=== PATIENT | female | born 1985 | race Caucasian/White ===

== ENCOUNTER 2020-04-27 14:22 | Inpatient (IN) ==
[2020-04-27] MEDS ORDERED: MULTI-VITAMIN INFUSION 10 ML, THIAMINE HCL 100 MG, FOLIC ACID 1 MG in SODIUM CHLORIDE 0... IV ONE (14:35)
[2020-04-27] MEDS ORDERED: LORazepam 1 MG TAB PO PRN ×2 (14:35)
--- NOTE | 2020-04-27 14:51 | Emergency Department Note ---
Impression & Plan Overdose, Depression, Alcohol abuse ED Provider Note NAME: DENIA WAGNER AGE: 34 SEX: F : 1985 ARRIVES VIA: Ambulance INFORMANT: Patient, ED PROVIDER(S): Candelario Santana MD Chief Complaint: Suicide attempt and overdose HPI: Patient reportedly did take 600 mg Seroquel 1 hour prior to arrival. This was after the patient had been drinking a drink a half fifth of vodka and 8-9 beers. The patient has been doing this since proximate 3 AM. The patient did recently moved from the [facility] approximately 20 days ago. Patient does not present with any COVID symptoms no fever no cough. The patient does have a known history of depression. The patient states that she did take the medication with an attempt to harm her self. Patient does not have access to guns or weapons. The patient does have a relative that works at [facility]. ROS: See HPI for pertinent positives and negatives. A total of 10 systems were reviewed and otherwise negative. Past medical history: See below Surgical history: See below Social history: See below Physical Exam: GENERAL: NAD, non-toxic. Wearing a mask. EYE EXAM: Normal conjunctiva. PERRL, no anisocoria and EOM's grossly intact w/o pain. NECK: Supple, no nuchal rigidity, no adenopathy, non-tender. No signs of meningismus. LUNGS: Clear to auscultation. Normal chest wall mechanics. HEART: NSR, no MRG. ABDOMEN: Abdomen soft, non-tender, normo-active bowel sounds, no masses, no rebound or guarding. BACK: No CVA TTP. SKIN: No rashes and no bruising. UPPER EXTREMITIES: Upper extremities are grossly normal. LOWER EXTREMITIES: Grossly normal, no edema. NEURO EXAM: Awake alert and follows commands, slurred speech, moves all 4 extremities without any problems. Psych: Depressed mood, active SI, negative HI or AVH. Differential diagnoses: Mood disorder, infection, hypoglycemia, electrolyte abnormalities, cardiac sources, intracerebral event, toxicologic, trauma, neurologic, as well as other pathologies. Course: Patient was seen and evaluated the bedside. Full history physical exam was performed. EKG: Indication: Overdose Normal sinus rhythm, rate of 79, normal intervals, normal axis, T wave flattening in V2 and 3 not in contiguous leads no obvious ST changes. No prior EKGs. Imaging Studies: Radiology results as stated below per my review in the radiologist's interpretation: Cardiac monitoring: An order was placed for continuous cardiac monitoring. The monitor shows a rate of 90 with sinus rhythm. MDM: Patient does present with acute overdose. I did speak with poison control which gave recommendations that if QTC is prolonged to give mag. Patient will be a 6- hour observation at this time. Patient does have a normal white count. Trace anemia patient has normal kidney function. Patient's urinalysis shows possibility of infection has numerous epithelial cells. Urine drug screen is positive for barbiturates MDMA, benzos and cocaine and marijuana. Patient was ordered additional medications to help avoid any sort of withdrawal along with a banana bag. Patient has a negative alcohol. The patient's pending reassessment is at 9 PM. The patient was signed out to the evening physician Dr. Bentley pending reassessment disposition. Past Med/Surg History Social History Preferred Language: Cameroonian Feels Safe at Home: Yes Smoking Status: Current every day smoker Allergies Allergies Allergy/AdvReac Type Severity Reaction Status Date / Time doxycycline Allergy Severe Throat Verified 04/20/20 15:32 swelling, hives and vomiting Home Meds Home Medications Medication Instructions Recorded Confirmed diazepam [Valium] 2 mg PO BID PRN 04/27/20 04/27/20 duloxetine [Cymbalta] 60 mg PO DAILY 04/27/20 04/27/20 gabapentin 300 mg PO TID 04/27/20 04/27/20 quetiapine [Seroquel] 25 mg PO HS 04/27/20 04/27/20 Results & Data (ED) Vital Signs Vital Signs - 24 hr 04/27/20 14:23 04/27/20 16:13 04/27/20 16:56 Temperature 37.1 C Temperature Source Oral Pulse Rate 90 Pulse Rate [Finger] 74 70 Pulse Rhythm Regular Pulse Strength Normal Respiratory Rate 18 17 17 Respiratory Effort / Characteristics Non-Labored Spontaneous Respiratory Depth Normal Respiratory Pattern Regular Blood Pressure 118/70 Blood Pressure [Left Arm] 99/59 L Blood Pressure Mean 86 Blood Pressure Mean [Left Arm] 72 Blood Pressure Position Lying Pulse Oximetry 97 99 98 Oxygen Delivery Method Room Air Room Air Room Air Sepsis Recent Fever Within 48 Hours No Sepsis New/Unexplained Change in Mental Status No Sepsis Action Taken by Nursing No Action Required Home Medications Current Medication List: was personally reviewed by me Laboratory Data Attestation: I reviewed the patient's lab results. Result diagrams: 04/27/20 14:38 04/27/20 14:38 Lab Results 04/27/20 04/27/20 04/27/20 Range/Units 14:38 14:38 14:38 WBC 6.00 (4.8-10.8) K/uL RBC 3.83 L (4.2-5.4) M/uL Hgb 11.9 L (12.0-16.0) g/dL Hct 34.3 L (37-47) % MCV 89.6 (80-100) fL MCH 31.1 (25-34) pg MCHC 34.7 (32-36) g/dL RDW Std Deviation 43.3 (36.4-46.3) fL RDW Coeff of [place] 13.3 (11.5-14.5) % Plt Count 246 (130-400) K/uL MPV 9.4 (7.4-10.4) fL Immature Gran % (Auto) 0.2 % Neut % (Auto) 53.0 % Lymph % (Auto) 28.3 % [place] % (Auto) 10.3 % Eos % (Auto) 7.7 % Baso % (Auto) 0.5 % Neut # (Auto) 3.18 (1.4-6.5) K/uL Lymph # (Auto) 1.70 (1.2-3.4) K/uL [place] # (Auto) 0.62 H (0.11-0.59) K/uL Eos # (Auto) 0.46 (0-0.5) K/uL Baso # (Auto) 0.03 (0-0.2) K/uL Immature Gran # (Auto) 0.01 (0.00-0.02) K/uL Sodium 141 (136-145) mmol/L Potassium 4.0 (3.5-5.1) mmol/L Chloride 111 H (98-107) mmol/L Carbon Dioxide 24 (21-32) mmol/L Anion Gap 5.0 (3-11) BUN 14 (7-18) mg/dl Creatinine 0.82 (0.6-1.2) mg/dl Est Cr Clr Drug Dosing 74.3 ml/min Est GFR ( Amer) 109.7 Est GFR (Non-Af Amer) 94.7 BUN/Creatinine Ratio 16.6 (10-20) Glucose 67 L (70-99) mg/dl Calcium 8.7 (8.5-10.1) mg/dl Total Bilirubin 0.7 (0.2-1) mg/dl AST 15 (15-37) U/L ALT 26 (12-78) U/L Alkaline Phosphatase 63 (45-117) U/L Total Protein 6.8 (6.4-8.2) gm/dl Albumin 3.6 (3.4-5.0) gm/dl Globulin 3.2 (2.5-4.0) gm/dl Albumin/Globulin Ratio 1.1 (0.9-2) TSH 1.100 (0.300-4.500) uIu/ml HCG, Qual (Negative) Urine Color Urine Appearance (Clear) Urine pH (4.5-7.5) Ur Specific [place] (1.000-1.030) Urine Protein (Negative) Urine Glucose (UA) (Negative) Urine Ketones (Negative) Urine Blood (Negative) Urine Nitrite (Negative) Urine Bilirubin (Negative) Urine Urobilinogen (Negative) Ur Leukocyte Esterase (Negative) Urine WBC (Auto) (0-5) /hpf Urine RBC (Auto) (0-4) /hpf U Hyaline Cast (Auto) (0-5) /lpf U Epithel Cells (Auto) (0-5) /lpf Urine Bacteria (Auto) (Negative) Salicylates 2.5 L (2.8-20) mg/dl Urine Opiates Screen (Neg) Ur Methadone, Qual (Neg) Acetaminophen < 2 L (10-30) ug/ml Urine Barbiturates (Neg) Ur Phencyclidine (PCP) (Neg) U Amphetamin/Meth Scrn (Neg) MDMA (Ecstasy) Screen (Neg) U Benzodiazepines Scrn (Neg) Ur Cocaine Metabolite (Neg) U Marijuana (THC) Screen (Neg) Ethyl Alcohol mg/dL (0-3) mg/dl 04/27/20 04/27/20 04/27/20 Range/Units 14:38 14:38 14:40 WBC (4.8-10.8) K/uL RBC (4.2-5.4) M/uL Hgb (12.0-16.0) g/dL Hct (37-47) % MCV (80-100) fL MCH (25-34) pg MCHC (32-36) g/dL RDW Std Deviation (36.4-46.3) fL RDW Coeff of [place] (11.5-14.5) % Plt Count (130-400) K/uL MPV (7.4-10.4) fL Immature Gran % (Auto) % Neut % (Auto) % Lymph % (Auto) % [place] % (Auto) % Eos % (Auto) % Baso % (Auto) % Neut # (Auto) (1.4-6.5) K/uL Lymph # (Auto) (1.2-3.4) K/uL [place] # (Auto) (0.11-0.59) K/uL Eos # (Auto) (0-0.5) K/uL Baso # (Auto) (0-0.2) K/uL Immature Gran # (Auto) (0.00-0.02) K/uL Sodium (136-145) mmol/L Potassium (3.5-5.1) mmol/L Chloride (98-107) mmol/L Carbon Dioxide (21-32) mmol/L Anion Gap (3-11) BUN (7-18) mg/dl Creatinine (0.6-1.2) mg/dl Est Cr Clr Drug Dosing ml/min Est GFR ( Amer) Est GFR (Non-Af Amer) BUN/Creatinine Ratio (10-20) Glucose (70-99) mg/dl Calcium (8.5-10.1) mg/dl Total Bilirubin (0.2-1) mg/dl AST (15-37) U/L ALT (12-78) U/L Alkaline Phosphatase (45-117) U/L Total Protein (6.4-8.2) gm/dl Albumin (3.4-5.0) gm/dl Globulin (2.5-4.0) gm/dl Albumin/Globulin Ratio (0.9-2) TSH (0.300-4.500) uIu/ml HCG, Qual Negative (Negative) Urine Color Urine Appearance (Clear) Urine pH (4.5-7.5) Ur Specific [place] (1.000-1.030) Urine Protein (Negative) Urine Glucose (UA) (Negative) Urine Ketones (Negative) Urine Blood (Negative) Urine Nitrite (Negative) Urine Bilirubin (Negative) Urine Urobilinogen (Negative) Ur Leukocyte Esterase (Negative) Urine WBC (Auto) (0-5) /hpf Urine RBC (Auto) (0-4) /hpf U Hyaline Cast (Auto) (0-5) /lpf U Epithel Cells (Auto) (0-5) /lpf Urine Bacteria (Auto) (Negative) Salicylates (2.8-20) mg/dl Urine Opiates Screen Neg (Neg) Ur Methadone, Qual Neg (Neg) Acetaminophen (10-30) ug/ml Urine Barbiturates Pos H (Neg) Ur Phencyclidine (PCP) Neg (Neg) U Amphetamin/Meth Scrn Neg (Neg) MDMA (Ecstasy) Screen Pos H (Neg) U Benzodiazepines Scrn Pos H (Neg) Ur Cocaine Metabolite Pos H (Neg) U Marijuana (THC) Screen Pos H (Neg) Ethyl Alcohol mg/dL < 3.0 (0-3) mg/dl 04/27/20 Range/Units 14:40 WBC (4.8-10.8) K/uL RBC (4.2-5.4) M/uL Hgb (12.0-16.0) g/dL Hct (37-47) % MCV (80-100) fL MCH (25-34) pg MCHC (32-36) g/dL RDW Std Deviation (36.4-46.3) fL RDW Coeff of [place] (11.5-14.5) % Plt Count (130-400) K/uL MPV (7.4-10.4) fL Immature Gran % (Auto) % Neut % (Auto) % Lymph % (Auto) % [place] % (Auto) % Eos % (Auto) % Baso % (Auto) % Neut # (Auto) (1.4-6.5) K/uL Lymph # (Auto) (1.2-3.4) K/uL [place] # (Auto) (0.11-0.59) K/uL Eos # (Auto) (0-0.5) K/uL Baso # (Auto) (0-0.2) K/uL Immature Gran # (Auto) (0.00-0.02) K/uL Sodium (136-145) mmol/L Potassium (3.5-5.1) mmol/L Chloride (98-107) mmol/L Carbon Dioxide (21-32) mmol/L Anion Gap (3-11) BUN (7-18) mg/dl Creatinine (0.6-1.2) mg/dl Est Cr Clr Drug Dosing ml/min Est GFR ( Amer) Est GFR (Non-Af Amer) BUN/Creatinine Ratio (10-20) Glucose (70-99) mg/dl Calcium (8.5-10.1) mg/dl Total Bilirubin (0.2-1) mg/dl AST (15-37) U/L ALT (12-78) U/L Alkaline Phosphatase (45-117) U/L Total Protein (6.4-8.2) gm/dl Albumin (3.4-5.0) gm/dl Globulin (2.5-4.0) gm/dl Albumin/Globulin Ratio (0.9-2) TSH (0.300-4.500) uIu/ml HCG, Qual (Negative) Urine Color Dark Yellow Urine Appearance Cloudy A (Clear) Urine pH 7.5 (4.5-7.5) Ur Specific [place] 1.017 (1.000-1.030) Urine Protein Negative (Negative) Urine Glucose (UA) Negative (Negative) Urine Ketones Negative (Negative) Urine Blood Negative (Negative) Urine Nitrite Positive A (Negative) Urine Bilirubin Negative (Negative) Urine Urobilinogen Negative (Negative) Ur Leukocyte Esterase 1+ H (Negative) Urine WBC (Auto) >30 H (0-5) /hpf Urine RBC (Auto) 0-4 (0-4) /hpf U Hyaline Cast (Auto) 1-5 (0-5) /lpf U Epithel Cells (Auto) >30 H (0-5) /lpf Urine Bacteria (Auto) 4+ H (Negative) Salicylates (2.8-20) mg/dl Urine Opiates Screen (Neg) Ur Methadone, Qual (Neg) Acetaminophen (10-30) ug/ml Urine Barbiturates (Neg) Ur Phencyclidine (PCP) (Neg) U Amphetamin/Meth Scrn (Neg) MDMA (Ecstasy) Screen (Neg) U Benzodiazepines Scrn (Neg) Ur Cocaine Metabolite (Neg) U Marijuana (THC) Screen (Neg) Ethyl Alcohol mg/dL (0-3) mg/dl Administered Medications Discontinued Medications Multivitamins 10 ml/ Thiamine HCl 100 mg/ Folic Acid 1 mg/Sodium Chloride 1,011.2 mls @ 500 mls/hr IV .Q2H2M ONE Stop: 04/27/20 16:36 Last Infusion: 04/27/20 17:37 Dose: 0 mls/hr Documented by: [id number] Admin: 04/27/20 15:19 Dose: 500 mls/hr Documented by: [id number] Lorazepam (Ativan) 1 mg PO ONE PRN; Protocol PRN Reason: EtoH Withdrawal AWSS 6-10 Last Admin: 04/27/20 15:20 Dose: 1 mg Documented by: [id number] Discharge Plan Visit Data Chief Complaint: Mental Health Evaluation Stated Complaint: suicide attempt ED Provider: Candelario Santana Discharge Problem: Overdose, Depression, Alcohol abuse Forms Stand Alone Forms: [facility], Suicide Prevention Resources Prescriptions Prescriptions: No Action diazepam [Valium] 2 mg Tablet 2 mg PO BID PRN (Reason: Anxiety) RF: 0 quetiapine [Seroquel] 25 mg Tablet 25 mg PO HS RF: 0 gabapentin 300 mg Capsule 300 mg PO TID RF: 0 duloxetine [Cymbalta] 60 mg Capsule,Delayed Release(Dr/Ec) 60 mg PO DAILY RF: 0 Discharge Problem: Overdose Qualifiers: Encounter type: initial encounter Injury intent: intentional self-harm Qualified Code(s): T50.902A - Poisoning by unspecified drugs, medicaments and biological substances, intentional self-harm, initial encounter Depression Qualifiers: Depression Type: major depressive disorder Major depression recurrence: unspecified whether recurrent Active/Remission status: remission status uns pecified Qualified Code(s): F32.9 - Major depressive disorder, single episode, unspecified
[2020-04-27 15:01] LABS: Basophils # (auto) 0.03 K/uL (0-0.2); Basophils % (auto) 0.5 %; Eosinophils # (auto) 0.46 K/uL (0-0.5); Eosinophils % (auto) 7.7 %; Hematocrit (blood only) 34.3 % (37-47); Hemoglobin 11.9 g/dL (12.0-16.0); Immature Granulocytes # (auto) 0.01 K/uL (0.00-0.02); Immature Granulocytes % (auto) 0.2 %; Lymphocytes % (auto) 28.3 %; Mean Corpuscular Hemoglobin 31.1 pg (25-34); Mean Corpuscular Hgb Conc 34.7 g/dL (32-36); Mean Corpuscular Volume 89.6 fL (80-100); Mean Platelet Volume 9.4 fL (7.4-10.4); Monocytes # (auto) 0.62 K/uL (0.11-0.59); Monocytes % (auto) 10.3 %; Neutrophils # (auto) 3.18 K/uL (1.4-6.5); Platelet Count 246 K/uL (130-400); RDW Coefficient of Variation 13.3 % (11.5-14.5); RDW Standard Deviation 43.3 fL (36.4-46.3); Red Blood Count 3.83 M/uL (4.2-5.4)
[2020-04-27 15:11] LABS: Appearance Urine Cloudy (Clear); Bacteria Urine Automated 4+ (Negative); Bilirubin Urine Negative (Negative); Blood Urine Negative (Negative); Color Urine Dark Yellow; Epithelial Cell Urine Auto >30 /lpf (0-5); Glucose Urine UA Negative (Negative); Ketones Urine Negative (Negative); Leukocyte Esterase Urine 1+ (Negative); Nitrite Urine Positive (Negative); Protein Urine Negative (Negative); RBC Urine Automated 0-4 /hpf (0-4); Specific Gravity Urine 1.017 (1.000-1.030); Urobilinogen Urine Negative (Negative); WBC Urine Automated >30 /hpf (0-5); pH Urine 7.5 (4.5-7.5)
[2020-04-27 15:19] LABS: Albumin Level 3.6 gm/dl (3.4-5.0); BUN Creatinine Ratio 16.6 (10-20); Calcium 8.7 mg/dl (8.5-10.1); Creatinine Clr Calc Pharmacy 74.3 ml/min; Est GFR (African American) 109.7; Est GFR (Non-African American) 94.7
[2020-04-27 15:25] LABS: Pregnancy Test, Serum Negative (Negative)
[2020-04-27 15:29] LABS: Albumin Globulin Ratio 1.1 (0.9-2); Bilirubin,Total 0.7 mg/dl (0.2-1); Globulin 3.2 gm/dl (2.5-4.0); Thyroid Stimulating Hormone 1.1 uIu/ml (0.300-4.500); Total Protein 6.8 gm/dl (6.4-8.2)
[2020-04-27 15:31] LABS: Acetaminophen < 2 ug/ml (10-30); Salicylate 2.5 mg/dl (2.8-20)
--- NOTE | 2020-04-27 15:44 | Electrocardiogram Report ---
Test Reason : Blood Pressure : / mmHG Vent. Rate : 079 BPM Atrial Rate : 079 BPM P-R Int : 144 ms QRS Dur : 080 ms QT Int : 392 ms P-R-T Axes : 001 012 009 degrees QTc Int : 449 ms Normal sinus rhythm Possible Left atrial enlargement Low voltage QRS Incomplete right bundle branch block Abnormal ECG No previous ECGs available Confirmed by Se Francois ([id number]) on 04/27/2020 3:44:15 PM Referred By: REFERRED SELF Confirmed By:Hola Francois
[2020-04-27 15:48] LABS: Amphetamines+Metham, Urine Neg (Neg); Barbiturates, Urine Pos (Neg); Benzodiazepine, Urine Pos (Neg); Cocaine, Urine Pos (Neg); MDMA (Ecstacy), Urine Pos (Neg); Methadone, Urine Neg (Neg); Opiate, Urine Neg (Neg); Phencyclidine, Urine Neg (Neg)
--- NOTE | 2020-04-27 18:55 | Emergency Department Note ---
ED Visit Note Patient signed out to me awaiting medical clearance from attempted Seroquel overdose by Dr. Santana. Reviewed prior laboratory studies and work-up. Seen in conjunction with the psychiatric director case who was additionally assessed the patient. Although is involved there is concern that this could be related to a suicide attempt. UDS is positive in multiple ways. Urinalysis questionable but the patient denies any symptoms. Will allow to get a culture before empirically treating given this. Reevaluated at 9 PM and the patient was more awake and ambulatory. She is questioning her evening medications of gabapentin and Valium. These were ordered and she appears quite awake. Denies active SI at this time although the reports of overdose attempt are very concerning. Seen by psychiatric director case. Referral for inpatient treatment were made. Given her recent travel rapid COVID test was completed and negative for placement purposes. Patient was accepted to [facility] for further inpatient psychiatric care on . . : Overdose Qualifiers: Encounter type: initial encounter Injury intent: intentional self-harm Qualified Code(s): T50.902A - Poisoning by unspecified drugs, medicaments and biological substances, intentional self-harm, initial encounter Depression Qualifiers: Depression Type: major depressive disorder Major depression recurrence: unspecified whether recurrent Active/Remission status: remission status unspecified Qualified Code(s): F32.9 - Major depressive disorder, single episode, unspecified
[2020-04-27] MEDS ORDERED: GABAPENTIN 300 MG CAP PO STA (21:18)
[2020-04-27] MEDS ORDERED: NICOTINE 21 MG/24 HR TDSY TD STA (21:18)
[2020-04-27] MEDS ORDERED: diazePAM 2 MG TABLET PO ONE (21:19)
[2020-04-28] MEDS ORDERED: ALUMINUM/MAGNESIUM SUSP 30 ML UDC PO PRN (00:19)
[2020-04-28] MEDS ORDERED: MAGNESIUM HYDROXIDE SUSP 30 ML UDC PO PRN (00:19)
[2020-04-28] MEDS ORDERED: BISMUTH SUBSALICYLATE PER ML OMNICELL CHARGE PO PRN (00:19)
[2020-04-28] MEDS ORDERED: ACETAMINOPHEN 325 MG TAB PO PRN (00:19)
[2020-04-28] MEDS ORDERED: SODIUM CHLORIDE 0.65% NA SOLN 45 ML (OCEAN) PRN (00:19)
[2020-04-28] MEDS ORDERED: diazePAM 2 MG TABLET PO PRN (00:26)
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
[2020-04-28] MEDS ORDERED: NICOTINE 21 MG/24 HR TDSY TD SCH (09:00)
[2020-04-28] MEDS ORDERED: DULOXETINE HCL 60 MG CAP PO SCH (09:00)
[2020-04-28] MEDS ORDERED: FOLIC ACID 1 MG TAB PO SCH (09:00)
[2020-04-28] MEDS ORDERED: GABAPENTIN 300 MG CAP PO SCH (09:00)
[2020-04-28] MEDS ORDERED: THIAMINE HCL 100 MG TAB PO SCH (09:00)
[2020-04-28] MEDS: LORazepam 1 MG TAB PO PRN ×2 (11:08→12:10)
[2020-04-28] MEDS ORDERED: GABAPENTIN 1200MG ALCOHOL WITHDRAWAL LOAD PO STA (11:16)
[2020-04-28] MEDS ORDERED: GABAPENTIN 600 MG TAB PO SCH ×2 (12:00→18:00)
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
[2020-04-29] MEDS ORDERED: GABAPENTIN 600 MG TAB PO SCH (08:00)
[2020-04-29] MEDS ORDERED: FLUOXETINE HCL 10 MG CAP PO SCH (09:00)
[2020-04-29] MEDS ORDERED: DULOXETINE HCL 30 MG CAP PO SCH (09:00)
[2020-04-30] MEDS ORDERED: GABAPENTIN 600 MG TAB PO SCH (12:00)
[2020-05-02] MEDS ORDERED: GABAPENTIN 600 MG TAB PO SCH
[2020-05-02 06:59] LABS: 7-Aminoclonaz, Confirm NEGATIVE ng/mL (<25); Amobarbital, Urine Conf NEGATIVE ng/mL (<100); Butalbital, Urine 572 ng/mL (<100); Cocaine, Urine 905 ng/mL (<100); Hydro-Alp Ur, GC/MS NEGATIVE ng/mL (<25); Hydroxyethylflurazepam, Conf NEGATIVE ng/mL (<50); Hydroxymidazolam Ur, GC/MS NEGATIVE ng/mL (<50); Hydroxytriazolam NEGATIVE ng/mL (<50); Lorazepam, Ur GC/MS NEGATIVE ng/mL (<50); MDA negative; MDEA negative; MDMA (Ecstasy) Urine, Confirm negative; Marijuana Quant, GCMS Urine 44 ng/mL (<5); Nordiazepam, Confirm 895 ng/mL (<50); Oxazepam Ur, GC/MS >2000 ng/mL (<50); Pentobarbital, Urine Conf NEGATIVE ng/mL (<100); Phenobarbital, Urine NEGATIVE ng/mL (<100); Secobarbital, Urine Conf NEGATIVE ng/mL (<100); Temazepam, Confirm >2000 ng/mL (<50)
== END 2020-04-28 13:04 | disposition left against medical advice (07) | DRG 918 ==
LOC: ED 14:22 → 3S 23:31